=== PATIENT | female | born 1990 | race Caucasian/White ===

== ENCOUNTER → 2017-01-06 | Emergency (ER) | payer MEDICAID ==
[~2017-01-06] VITALS: Ht 160 cm; Wt 64.0 kg
[~2017-01-06] MED LIST: ACET500C5 PO; ACETAMINOPHEN 500 MG TAB PO STA; CEPH-443 PO; FERR-55 PO; NITR-58 PO; ONDA4TAB8 PO; ONDANSETRON (ODT) 4 MG TAB ODT STA; PREN1TAB12; PREN1TAB49 PO
[2017-01-06 22:42] VITALS: Ht 160 cm; Wt 64.0 kg
--- NOTE | 2017-01-07 01:02 | ERD ---
ER Documentation Chief Complaint Date/Time DATE: 01/07/17 TIME: 00:55 Chief Complaint abdominal pain x 2 days, denies vb, states 8 weeks HPI This is a 26-year-old female who presents the emergency department today complaining of some left-sided abdominal pain for the past 2 days. States she is approximately 8 weeks . States she went to her clinic today and was referred here to the emergency department for further evaluation and management as her ultrasound showed only a gestational sac. States she has had some nausea but no vomiting she was sent here to rule out ectopic . She has not taken any medication for the pain. Denies any vaginal bleeding, fevers or chills ROS All systems reviewed and are negative except as per history of present illness. Medications Home Meds Active Scripts Ondansetron Hcl* (Zofran*) 4 Mg Tablet, 4 MG PO Q6H for NAUSEA AND/OR VOMITING, #30 TAB Prov:RENATA SANCHEZ PA-C 01/07/17 Cephalexin* (Keflex*) 500 Mg Capsule, 500 MG PO QID for 7 Days, CAP Prov:RENATA SANCHEZ PA-C 01/07/17 Acetaminophen* (Tylophen*) 500 Mg Capsule, 1 CAP PO Q6H Y for PAIN AND OR ELEVATED TEMP, #30 CAP Prov:RENATA SANCHEZ PA-C 01/07/17 Nitrofurantoin Monohyd Macrocr* (Macrobid*) 100 Mg Capsr, 100 MG PO BID for 5 Days, CAP Prov:TAQUERIA HUBBARD NP 10/06/15 Reported Medications Ferrous Sulfate* (Ferrous Sulfate*) 325 Mg Tablet, 325 MG PO DAILY 10/30/12 Vits W-Ca,Fe,Fa(<1MG) () 1 Tab Tablet, 1 TAB PO DAILY 10/30/12 Vit/Fe Fumarate/Fa ( 1-1 Tablet) 1 Tab Tablet 02/12/10 Allergies Allergies: Coded Allergies: No Known Drug Allergy (Verified Allergy, Unknown, 01/06/17) PMhx/Soc Hx Alcohol Use: No Hx Substance Use: No Hx Tobacco Use: No Physical Exam Vitals Vital Signs Date Time Temp Pulse Resp B/P Pulse Ox O2 Delivery O2 Flow Rate FiO2 01/07/17 03:34 99.2 50 20 131/61 100 Room Air 01/06/17 22:42 99.2 73 20 124/69 99 Physical Exam Const: No acute distress Head: Atraumatic Eyes: Normal Conjunctiva ENT: Normal External Ears, Nose and Mouth. Neck: Full range of motion..~ No meningismus. Resp: Clear to auscultation bilaterally Cardio: Regular rate and rhythm, no murmurs Abd: Soft, left-sided pelvic tenderness, non distended. Normal bowel sounds. No right lower quadrant pain. No tenderness McBurney's Skin: No petechiae or rashes Back: No midline or flank tenderness. No CVA tenderness Ext: No cyanosis, or edema Neur: Awake and alert Psych: Normal Mood and Affect Result Diagram: 01/07/17 0111 Results 24 hrs Laboratory Tests Test 01/07/17 01:11 White Blood Count 11.410^3/ul Red Blood Count 4.0410^6/ul Hemoglobin 11.9g/dl Hematocrit 34.1% Mean Corpuscular Volume 84.4fl Mean Corpuscular Hemoglobin 29.5pg Mean Corpuscular Hemoglobin Concent 34.9g/dl Red Cell Distribution Width 11.9% Platelet Count 47470^3/UL Mean Platelet Volume 11.0fl Neutrophils % 63.4% Lymphocytes % 30.1% Monocytes % 5.3% Eosinophils % 0.4% Basophils % 0.4% Nucleated Red Blood Cells % 0.0/100WBC Neutrophils # 7.310^3/ul Lymphocytes # 3.410^3/ul Monocytes # 0.610^3/ul Eosinophils # 0.110^3/ul Basophils # 0.010^3/ul Nucleated Red Blood Cells # 0.010^3/ul Urine Color STRAW Urine Clarity CLEAR Urine pH 6.0 Urine Specific [place] 1.006 Urine Ketones NEGATIVEmg/dL Urine Nitrite NEGATIVEmg/dL Urine Bilirubin NEGATIVEmg/dL Urine Urobilinogen NEGATIVEmg/dL Urine Leukocyte Esterase 2+Lamont/ul Urine Microscopic RBC 5/HPF Urine Microscopic WBC 3/HPF Urine Squamous Epithelial Cells FEW/HPF Urine Hemoglobin 2+mg/dL Urine Glucose NEGATIVEmg/dL Urine Total Protein NEGATIVEmg/dl Beta HCG, Quantitative 228879.0mIU/ml Current Medications Medications (Trade) Dose Ordered Sig/Camila Route PRN Reason Start Time Stop Time Status Last Admin Dose Admin Ondansetron HCl (Zofran Odt) 4 mg ONCE STAT ODT 01/07/17 00:35 01/07/17 00:37 DC 01/07/17 01:24 Acetaminophen (Tylenol Tab) 500 mg ONCE STAT PO 01/07/17 00:35 01/07/17 00:37 DC 01/07/17 01:24 DIAGNOSTIC IMAGING REPORT Patient: CLAUDETTE TEJADA : 1990 Age: 26 Sex: F MR #: [id number] DOS: 01/07/17 0035 Ordering MD: RENATA SANCHEZ PA-C Location: [facility] Room/Bed: PROCEDURE: US OB. CLINICAL INDICATION: Pain.. TECHNIQUE: Multiple sonographic images of the pelvis were obtained. Transabdominal and transvaginal views of the pelvis are available for review. The images were reviewed on a PACS workstation. COMPARISON: No prior studies are available for comparison. FINDINGS: A single live intrauterine is identified. heart rate is 172 beats per minute. The crown-rump length is 2.46 cm which corresponds to 9 weeks 1 day gestational age by ultrasound criteria. Estimated date of delivery is 08/2017 by crown rump length.. There is a there is 16 x 2 mm subchorionic hemorrhage is identified adjacent to the gestational sac. Right ovary is not visualized. Left ovary is unremarkable with vascular flow identified.. There is no adnexal mass. There is no free fluid. IMPRESSION: 1. Single live intrauterine gestation of approximately 9 weeks 1 day. 2. Subchorionic hemorrhage is present. 3. Right ovary not identified. RPTAT: HMVK .Tej Araiza MD, MD Date Time Electronically viewed and signed by .Tej Araiza MD, MD on 01/07/2017 01:04 .K/ CC: RENATA SANCHEZ PA-C Procedures/MDM This is a A1 26-year-old female who presents to the emergency department today complaining of left-sided abdominal pain. Patient states she is approximately 8 weeks . Patient was sent here by her primary care clinic to rule out ectopic . Given this I did obtain a complete OB workup. Laboratory work shows a mildly elevated white blood cell count. She has a very mildly decreased hemoglobin. Platelets are within normal limits. UA shows 2+ leukocyte Estrace. Beta quant hCG 365359.0 Rh status O+ Ultrasound shows a single live intrauterine gestation of approximately 9 weeks and 1 day. heart rate is 172 bpm. There is a 16 x 2 mm subchorionic hemorrhage identified adjacent to the gestational sac. Left ovary is unremarkable with vascular flow identified. Right ovary is not visualized. There is no adnexal mass or free fluid. She has no right-sided abdominal pain Patient symptoms at this time is consistent with urinary tract infection and subchorionic hemorrhage although patient has no vaginal bleeding. Patient abdominal pain likely related to the urinary tract infection. Patient is afebrile and otherwise well-appearing. I have low suspicion for ectopic , tubo ovarian abscess, ovarian torsion. Low suspicion for acute surgical abdomen Patient was given Zofran and Tylenol here in the emergency department and symptoms improved I have explained the results to the patient. Patient be given a prescription for Tylenol, Zofran and Keflex. At this time the patient is stable for discharge and outpatient management. Patient should follow up with their PCP in the next 1-2 days. They may return to the emergency department sooner for any persistent or worsening of symptoms. Patient understood and agreed with the plan. Departure Diagnosis: Primary Impression: UTI (urinary tract infection) Urinary tract infection type: site unspecified Hematuria presence: without hematuria Qualified Code: N39.0 - Urinary tract infection without hematuria, site unspecified Additional Impression: Pelvic pain during Condition: RENATA Bianchi PA-C Jan 07, 2017 01:02
--- NOTE | 2017-01-07 01:04 | RADRPT ---
PROCEDURE: US OB. CLINICAL INDICATION: Pain.. TECHNIQUE: Multiple sonographic images of the pelvis were obtained. Transabdominal and transvagin al views of the pelvis are available for review. The images were reviewed on a PACS workstation. COMPARISON: No prior studies are available for comparison. FINDINGS: A single live intrauterine is identified. heart rate is 172 beats per minute. The cr own-rump length is 2.46 cm which corresponds to 9 weeks 1 day gestational age by ultrasound criteria . Estimated date of delivery is 08/11/2017 by crown rump length.. There is a there is 16 x 2 mm boateng bchorionic hemorrhage is identified adjacent to the gestational sac. Right ovary is not visualized. Left ovary is unremarkable with vascular flow identified.. There is no adnexal mass. There is no free fluid. IMPRESSION: 1. Single live intrauterine gestation of approximately 9 weeks 1 day. 2. Subchorionic hemorrhage is present. 3. Right ovary not identified. RPTAT: HMVK .Tej Araiza MD, MD Date Time Electronically viewed and signed by .Tej Araiza MD, on 01/07/2017 01:04 .K/
[2017-01-07 01:31] LABS: BASOPHILS % 0.4 % (0.0-2.0); EOSINOPHILS # 0.1 10^3/ul (0.0-0.5); EOSINOPHILS % 0.4 % (0.0-7.0); HEMATOCRIT 34.1 % (37.0-47.0); HEMOGLOBIN 11.9 g/dl (12.0-16.0); LYMPHOCYTES # 3.4 10^3/ul (0.8-2.9); LYMPHOCYTES % 30.1 % (15.0-51.0); MEAN CORPUSCULAR HEMOGLOBIN 29.5 pg (29.0-33.0); MEAN CORPUSCULAR HGB CONC 34.9 g/dl (32.0-37.0); MEAN CORPUSCULAR VOLUME 84.4 fl (82.0-101.0); MONOCYTE # 0.6 10^3/ul (0.3-0.9); MONOCYTES % 5.3 % (0.0-11.0); NEUTROPHIL # 7.3 10^3/ul (1.6-7.5); NEUTROPHILS % 63.4 % (39.0-77.0); PLATELET COUNT 242 10^3/UL (140-415); RED BLOOD COUNT 4.04 10^6/ul (4.20-5.40); RED CELL DISTRIBUTION WIDTH 11.9 % (11.5-14.5); WHITE BLOOD COUNT 11.4 10^3/ul (4.8-10.8)
[2017-01-07 01:32] LABS: ADD SCAN DIFF NO
[2017-01-07 01:42] LABS: ADD UMIC YES; UR ASCORBIC ACID NEGATIVE (NEGATIVE); UR BILIRUBIN (Dip) NEGATIVE (NEGATIVE); UR BLOOD (Dip) 2+ mg/dL (NEGATIVE); UR CLARITY CLEAR (CLEAR); UR COLOR STRAW (YELLOW); UR GLUCOSE (Dip) NEGATIVE (NEGATIVE); UR KETONES (Dip) NEGATIVE (NEGATIVE); UR LEUKOCYTE ESTERASE (Dip) 2+ Leu/ul (NEGATIVE); UR NITRITE (Dip) NEGATIVE (NEGATIVE); UR RBC 5 /HPF (0-5); UR SPECIFIC GRAVITY (Dip) 1.006 (1.003-1.030); UR SQUAMOUS EPITHELIAL CELL FEW /HPF (FEW); UR TOTAL PROTEIN (Dip) NEGATIVE (NEGATIVE); UR UROBILINOGEN (Dip) NEGATIVE (NEGATIVE)
[2017-01-07 03:34] VITALS: BP 131/61; PULSE 50; RESP 20; TEMP 99.2
== END | disposition home or self-care (01) ==
LOC: FTE 22:32
DX: O23.41 Unspecified infection of urinary tract in pregnancy, first trimester (principal); R10.2 Pelvic and perineal pain; R11.0 Nausea; Z3A.09 9 weeks gestation of pregnancy
CPT/HCPCS: 36415; Z7502; 76801; 81001; 84702; 85025; 86900; 86901

== ENCOUNTER 2017-04-17 11:45 | Outpatient (CLI) | payer MEDICAID ==
[~2017-04-17] VITALS: Ht 153.7 cm; Wt 63.6 kg
[~2017-04-17 11:45] MED LIST changes: -ACETAMINOPHEN 500 MG TAB PO STA; -ONDANSETRON (ODT) 4 MG TAB ODT STA
[2017-04-17] MEDS ORDERED: LACTATED RINGER'S 1,000 ML IV SCH (11:50)
[2017-04-17 12:39] LABS: BASOPHILS % 0.2 % (0.0-2.0); EOSINOPHILS # 0.1 10^3/ul (0.0-0.5); EOSINOPHILS % 0.7 % (0.0-7.0); HEMATOCRIT 30.1 % (37.0-47.0); HEMOGLOBIN 9.9 g/dl (12.0-16.0); LYMPHOCYTES # 1.7 10^3/ul (0.8-2.9); LYMPHOCYTES % 17.7 % (15.0-51.0); MEAN CORPUSCULAR HEMOGLOBIN 29.4 pg (29.0-33.0); MEAN CORPUSCULAR HGB CONC 32.9 g/dl (32.0-37.0); MEAN CORPUSCULAR VOLUME 89.3 fl (82.0-101.0); MEAN PLATELET VOLUME 11.3 fl (7.4-10.4); MONOCYTE # 0.5 10^3/ul (0.3-0.9); MONOCYTES % 5.6 % (0.0-11.0); NEUTROPHIL # 7.2 10^3/ul (1.6-7.5); NEUTROPHILS % 74.9 % (39.0-77.0); PLATELET COUNT 201 10^3/UL (140-415); RED BLOOD COUNT 3.37 10^6/ul (4.20-5.40); RED CELL DISTRIBUTION WIDTH 13.7 % (11.5-14.5); WHITE BLOOD COUNT 9.6 10^3/ul (4.8-10.8)
--- NOTE | 2017-04-17 12:50 | RADRPT ---
PROCEDURE: US Abdomen. CLINICAL INDICATION: abdominal pain TECHNIQUE: Multiple real-time images were acquired of the patient's right upper quadrant abdomen a nd retroperitoneum utilizing a high resolution transducer. COMPARISON: None FINDINGS: The liver demonstrates normal echogenicity. The liver is normal in size and no focal solid lesions are seen. The liver measures 18.5 cm in length. The portal vein is patent with normal direction of f low. No intrahepatic biliary dilatation is seen. Multiple calcified gallstones are identified within the gallbladder. There is no pericholecystic fl uid or gallbladder wall thickening. The common bile duct measures 4.5 mm in maximal dimension. The visualized portions of the pancreas are unremarkable. The tail of the pancreas is not seen. No free fluid is identified. The right kidney is normal in size, and demonstrate normal echogenicity and cortical thickness. The right kidney measures 12 cm in long dimension. There is no evidence of hydronephrosis. There are n o kidney stones. RPTAT: AA IMPRESSION: Cholelithiasis. No evidence of gallbladder wall thickening or pericholecystic fluid. .Jovany Mirza MD, MD Date Time Electronically viewed and signed by .Jovany Mirza MD, on 04/17/2017 12:50 .S/
[2017-04-17 12:58] LABS: INR 0.95; PROTIME 12.7 Sec (12.2-14.2)
[2017-04-17 12:59] LABS: PARTIAL THROMBOPLASTIN TIME 30.4 Sec (25.0-35.0)
--- NOTE | 2017-04-17 13:06 | RADRPT ---
PROCEDURE: US OB AND ULTRASOUND CERVIX. CLINICAL INDICATION: Size and dates , labor TECHNIQUE: Multiple sonographic images of the pelvis and gravid uterus were obtained. The images were reviewed on a PACS workstation. Transvaginal images of the cervix were also obtained. COMPARISON: No prior studies are available for comparison. FINDINGS: The cervix has a length of 4.5 cm. There is a single viable intrauterine gestation. Cardiac activity is present with 136 beats per min ciara. There is a vertex presentation. The placenta is posterior. There is no evidence of placenta previa. There are fluid collections seen near the edge of the placenta measuring 2.3 x 1.5 cm and 2.4 x 0.9 cm. MVP = 5.4 cm. RPTAT: AA IMPRESSION: Posterior placenta with hypoechoic fluid collections seen near the edge of the placenta. Small focal areas of placental abruption cannot be excluded. Normal MVP. Cervix is closed and measures 4.5 cm in length. .Jovany Mirza MD, MD Date Time Electronically viewed and signed by .Jovany Mirza MD, MD on 04/17/2017 13:05 .S/
[2017-04-17 13:07] VITALS: Ht 153.7 cm; Wt 63.6 kg
[2017-04-17 13:07] LABS: ADD UMIC YES; UR AMORPHOUS CRYSTAL FEW /HPF (NONE SEEN); UR ASCORBIC ACID NEGATIVE (NEGATIVE); UR BACTERIA FEW /HPF (NONE SEEN); UR BILIRUBIN (Dip) NEGATIVE (NEGATIVE); UR BLOOD (Dip) NEGATIVE (NEGATIVE); UR CLARITY TURBID (CLEAR); UR COLOR YELLOW (YELLOW); UR GLUCOSE (Dip) 1+ mg/dL (NEGATIVE); UR KETONES (Dip) NEGATIVE (NEGATIVE); UR LEUKOCYTE ESTERASE (Dip) NEGATIVE Leu/ul (NEGATIVE); UR MUCUS MODERATE /HPF (NONE SEEN); UR NITRITE (Dip) NEGATIVE (NEGATIVE); UR RBC 4 /HPF (0-5); UR SPECIFIC GRAVITY (Dip) 1.018 (1.003-1.030); UR SQUAMOUS EPITHELIAL CELL FEW /HPF (FEW); UR TOTAL PROTEIN (Dip) NEGATIVE (NEGATIVE); UR UROBILINOGEN (Dip) NEGATIVE (NEGATIVE)
[2017-04-17 13:08] VITALS: BP 88/50; PULSE 80; RESP 18
[2017-04-17 13:10] LABS: ALBUMIN 3.2 g/dl (3.3-4.9); ALBUMIN/GLOBULIN RATIO 0.88; BILIRUBIN,INDIRECT 0.2 mg/dl (0-1.1); BILIRUBIN,TOTAL 0.2 mg/dl (0.2-1.3); CREATININE 0.51 mg/dl (0.44-1.00); POTASSIUM 3.6 mmol/L (3.5-5.1); TOTAL PROTEIN 6.8 g/dl (6.1-8.1); URIC ACID 3.6 mg/dl (3.1-7.9)
--- NOTE | 2017-04-17 14:42 | PN ---
Triage Information Date/Time Reason for visit: Weeks of Gestation 23w 1d /Para Objective Vital Signs Date Time Temp Pulse Resp B/P Pulse Ox O2 Delivery O2 Flow Rate FiO2 04/17/17 13:08 97.8 80 18 88/50 99 Room Air Heart Rate Comments reactive Contractions: None Results/Medications Result Diagram: 04/17/17 1212 04/17/17 1212 Results 24 hrs Laboratory Tests Test 04/17/17 12:12 04/17/17 12:13 White Blood Count 9.6 Red Blood Count 3.37 L Hemoglobin 9.9 L Hematocrit 30.1 L Mean Corpuscular Volume 89.3 Mean Corpuscular Hemoglobin 29.4 Mean Corpuscular Hemoglobin Concent 32.9 Red Cell Distribution Width 13.7 Platelet Count 201 Mean Platelet Volume 11.3 H Neutrophils % 74.9 Lymphocytes % 17.7 Monocytes % 5.6 Eosinophils % 0.7 Basophils % 0.2 Nucleated Red Blood Cells % 0.0 Neutrophils # 7.2 Lymphocytes # 1.7 Monocytes # 0.5 Eosinophils # 0.1 Basophils # 0.0 Nucleated Red Blood Cells # 0.0 Prothrombin Time 12.7 Prothrombin Time Ratio 1.0 INR International Normalized Ratio 0.95 Activated Partial Thromboplast Time 30.4 Sodium Level 137 Potassium Level 3.6 Chloride Level 108 Carbon Dioxide Level 24 Anion Gap 9 Blood Urea Nitrogen 9 Creatinine 0.51 Glucose Level 125 Uric Acid 3.6 Calcium Level 9.0 Total Bilirubin 0.2 Direct Bilirubin 0.00 Indirect Bilirubin 0.2 Aspartate Amino Transf (AST/SGOT) 16 Alanine Aminotransferase (ALT/SGPT) 29 Alkaline Phosphatase 71 Total Protein 6.8 Albumin 3.2 L Globulin 3.60 H Albumin/Globulin Ratio 0.88 Amylase Level 96 Lipase 102 Urine Color YELLOW Urine Clarity TURBID A Urine pH 7.0 Urine Specific [place] 1.018 Urine Ketones NEGATIVE Urine Nitrite NEGATIVE Urine Bilirubin NEGATIVE Urine Urobilinogen NEGATIVE Urine Leukocyte Esterase NEGATIVE Urine Microscopic RBC 4 Urine Microscopic WBC 8 H Urine Squamous Epithelial Cells FEW Urine Calcium Oxalate Crystals FEW A Urine Amorphous Crystals FEW A Urine Bacteria FEW A Urine Mucus MODERATE Urine Hemoglobin NEGATIVE Urine Glucose 1+ H Urine Total Protein NEGATIVE Medications Current Medications Lactated Ringer's (Lr) 1,000 ml @ 125 mls/hr Q8H IV Last administered on t 12:16; Admin Dose 125 MLS/HR; Start 04/17/17 at 11:50 Imaging Results Abdominal US: +cholelithiasis, no GB wall thickening Disposition: Discharge Assessment/Plan 26 y/o at 23w 1d with epigastric pain 2/2 gallstones -discharge home -diet discussed -f/u with OB [facility] Apr 17, 2017 14:42
== END 2017-04-17 15:30 | disposition home or self-care (01) ==
LOC: L-D 11:45 → OBT 11:45
PROVIDERS: ATTEND Obstetrics & Gynecology
DX: O99.612 Diseases of the digestive system complicating pregnancy, second trimester (principal); K80.20 Calculus of gallbladder without cholecystitis without obstruction; Z3A.23 23 weeks gestation of pregnancy
CPT/HCPCS: 36415; 76705; 76815; 76817; 80053; 80076; 81001; 82150; 83690; 84560; 85025; 85610; 85730; 96360; 96361; J7120; Z7500; G0463

== ENCOUNTER 2017-07-31 20:14 | Outpatient (CLI) | END 2017-08-01 01:22 | disposition home or self-care (01) ==

== ENCOUNTER 2017-08-04 13:00 | Inpatient (IN) | END 2017-08-06 15:20 | disposition home or self-care (01) | DRG 775 ==